=== PATIENT | female | born 1990 | race Caucasian/White ===

== ENCOUNTER 2017-10-30 22:51 | Emergency (ER) | payer BC ==
--- NOTE | 2017-10-30 23:04 | EDPHY ---
H & P Stated Complaint: ETOH Time Seen by Provider: 10/30/17 22:58 HPI/ROS: Chief Complaint: Alcohol intoxication, vomiting HPI: 27-year-old female who was found in front of a friend's house intoxicated. Patient passed out after drinking. Is unable to ambulate on their own. Patient brought in by EMS for further evaluation. No obvious signs of trauma per EMS. Remainder of history is unobtainable secondary to the patient' s intoxication. ROS: Unobtainable secondary to the patient's intoxication PMH: Unknown Medications: Unknown Allergies: Unknown Social History: Positive for alcohol Family History: non-contributory Physical Exam: Gen: Somnolent, responds to painful stimuli, maintaining airway, smells of alcohol HEENT: Atraumatic Nose: no epistaxis or deformity Eyes: PERRLA, EOMI Mouth: Moist mucosa Neck: Supple, no step-offs or deformity Chest: Atraumatic, lungs clear to auscultation Heart: S1, S2 normal, no murmur Abd: Soft, non-tender, no guarding Back: Atraumatic Ext: no edema, atraumatic Skin: no rash Neuro: Sensation grossly intact, Strength 5/5 in bilateral upper and lower extremities - Personal History LMP (Females 10-55): 8-14 Days Ago Current Tetanus/Diphtheria Vaccine: Unsure - Medical/Surgical History Hx Chronic Respiratory Disease: No Hx Diabetes: No Hx Cardiac Disease: No Hx Renal Disease: No Hx Cirrhosis: No Hx Alcoholism: No Hx HIV/AIDS: No Hx Splenectomy or Spleen Trauma: No Other PMH: denies - Social History Smoking Status: Never smoked Constitutional: Initial Vital Signs Heart Rate 108 H 10/30/17 22:55 Respiratory Rate 15 10/30/17 22:55 Blood Pressure 142/88 H 10/30/17 22:55 O2 Sat (%) 98 10/30/17 22:55 O2 Delivery Mode Room Air Allergies/Adverse Reactions: No Known Allergies Allergy (Unverified 10/30/17 22:55) Home Medications: Medication Instructions Recorded NK [No Known Home Meds] 10/30/17 Medical Decision Making ED Course/Re-evaluation: Patient is now awake and appropriate. Ambulating unassisted to the bathroom. No current complaints. Medically cleared for the [facility] - Data Points Laboratory Results: 10/30/17 23:03 POC Glucose 94 mg/dL mg/dL (70-100) Point of Care Test Results: 10/30/17 23:03 POC Glucose 94 Departure - Departure Disposition: Home, Routine, Self-Care Clinical Impression: Alcoholic intoxication Condition: Good Instructions: Alcohol Intoxication (ED) Additional Instructions: Please seek help [facility] for your alcohol use. Follow up with primary care physician in 2-3 days for further evaluation. Referrals: Meaghan Price MD [Medical Doctor] - As per Instructions
[2017-10-31 00:48] VITALS: BP 138/70; PULSE 78; RESP 16
[2017-10-31 00:50] VITALS: O2SAT 98
== END 2017-10-31 00:53 | disposition home or self-care (01) ==
LOC: EDUNIT#
DX: F10.129 Alcohol abuse with intoxication, unspecified (principal)